=== PATIENT | male | born 1965 | race Caucasian/White ===

== ENCOUNTER 2017-11-03 08:15 | Emergency (ER) | payer BC ==
[2017-11-03 08:26] VITALS: BMI 39.9
--- NOTE | 2017-11-03 11:09 | PDOC ---
History of Present Illness - General Chief Complaint: Pain Stated Complaint: CONSTIPATED Time Seen by Provider: 11/03/17 09:36 History Source: Patient Exam Limitations: No Limitations - History of Present Illness Travel History: No Initial Comments: 11/03/17 10:33 51-year-old male presents to the emergency room with complaints of constipation for the past day along with mild generalized fullness without nausea, fever, chills or abdominal distention. Patient states trembling as follows morning but was unable to pass and feels pressure in his rectum. Pushing. Patient states history of intermittent constipation but normally by the next day is able to pass stool. Patient denies recent change in diet, recent travel, recent change in medications, or poor fluid intake. Timing/Duration: reports: constant Quality: reports: mild, fullness Abdominal Pain Onset Location: reports: generalized abdomen Pain Radiation: reports: no radiation Activities at Onset: reports: none Aggravating Factors: improves with: None Alleviating Factors: improves with: None Past History - Travel Traveled outside of the country in the last 30 days: No - Past Medical History Allergies/Adverse Reactions: Allergies Allergy/AdvReac Type Severity Reaction Status Date / Time No Known Allergies Allergy Verified 11/03/17 08:26 Home Medications: Ambulatory Orders Atorvastatin Calcium 10 mg PO HS 11/03/17 Carvedilol 12.5 mg PO TID 11/03/17 Hydrochlorothiazide 25 mg PO DAILY 11/03/17 Losartan Potassium 100 mg PO DAILY 11/03/17 Polyethylene Glycol 3350 [Miralax (For Bowel Prep) -] 17 gm PO Q2H PRN #1 bottle 11/03/17 Travoprost [Travatan Z] 1 drop OU HS 11/03/17 COPD: No HTN: Yes Hypercholesterolemia: Yes Other medical history: PRESSURE IN EYES - Surgical History Appendectomy: Yes - Suicide/Smoking/Psychosocial Hx Smoking History: Former smoker Have you smoked in the past 12 months: No If you are a former smoker, when did you quit?: 10 YRS Information on smoking cessation initiated: No Hx Alcohol Use: Yes (SOCIAL) Drug/Substance Use Hx: No Patient Lives Alone: Yes Lives with/in: lives alone Review of Systems - Review of Systems Able to Perform ROS?: Yes Constitutional: No: Symptoms Reported HEENTM: No: Symptoms Reported Respiratory: No: Symptoms reported Cardiac (ROS): No: Symptoms Reported ABD/GI: Yes: Constipated, Diarrhea, Abdominal cramping : No: Symptoms Reported Musculoskeletal: No: Symptoms Reported Integumentary: No: Symptoms Reported Neurological: No: Symptoms reported *Physical Exam - Vital Signs Last Vital Signs Temp Pulse Resp BP Pulse Ox 98.0 F 82 20 163/84 95 11/03/17 08:20 11/03/17 08:20 11/03/17 08:20 11/03/17 08:20 11/03/17 08:20 - Physical Exam General Appearance: Yes: Nourished, Appropriately Dressed. No: Apparent Distress Respiratory/Chest: positive: Lungs Clear, Normal Breath Sounds. negative: Respiratory Distress, Accessory Muscle Use Cardiovascular: positive: Regular Rhythm, Regular Rate. negative: Murmur Gastrointestinal/Abdominal: positive: Normal Bowel Sounds, Soft. negative: Distended, Guarding, Rebound, Tenderness, Hernia, Mass Integumentary: positive: Normal Color, Warm, Moist Neurologic: positive: Motor Strength 5/5 (ambulatory) ED Treatment Course - RADIOLOGY Radiology Studies Ordered: Category Date Time Status ABDOMEN FLAT & UPRIGHT [RAD] Stat Radiology 11/03/17 09:53 Completed Medical Decision Making - Medical Decision Making 11/03/17 10:46 Patient here with constipation complaints of the past 2 days. Patient unable to pass stool this morning for decided come to the ER. Patient also mentions generalized abdominal cramping. Patient reexamined had normal bowel sounds throughout all 4 quadrants with no distention or tenderness on exam. Patient was ordered for flat and upright x-ray 11/03/17 11:46 X-ray shows fecal debris throughout the colon without signs of obstruction or dilatation. Patient discharged home with MiraLAX. *DC/Admit/Observation/Transfer Diagnosis at time of Disposition: Constipation Qualifiers: Constipation type: unspecified constipation type Qualified Code(s): K59.00 - Constipation, unspecified - Discharge Dispostion Disposition: HOME Condition at time of disposition: Good - Prescriptions Prescriptions: Polyethylene Glycol 3350 [Miralax (For Bowel Prep) -] 17 gm PO Q2H PRN #1 bottle PRN Reason: Constipation - Referrals - Patient Instructions Printed Discharge Instructions: DI for Constipation Additional Instructions: Please take MiraLAX as discussed and repeat dose in 2 hours if no bowel movement. If symptoms continue over the next few days without producing a bowel movement please return to the nearest ED as you may need further evaluation. Otherwise increase your walking distance and fluid intake - Post Discharge Activity
[2017-11-03 11:28] VITALS: BP 136/95; PULSE 95; TEMP 98.3
--- NOTE | 2017-11-03 12:48 | PDOC ---
*Physical Exam - Vital Signs Last Vital Signs Temp Pulse Resp BP Pulse Ox 98.3 F 95 H 19 136/95 99 11/03/17 11:27 11/03/17 11:27 11/03/17 11:27 11/03/17 11:27 11/03/17 11:27 Medical Decision Making - Medical Decision Making 11/03/17 12:47 This is a 51yo M presenting with a complaint of constipation for the past few days, feeling generalized fullness without nausea, fever, chills. Pt seen by Midlevel Provider under my direct supervision Pt interviewed and examined Ancillary studies reviewed I agree with plan as outlined by Midlevel Provider Xray: no air fluid levels Will discharge with bowel regimen 11/03/17 12:48 *DC/Admit/Observation/Transfer Diagnosis at time of Disposition: Constipation Qualifiers: Constipation type: unspecified constipation type Qualified Code(s): K59.00 - Constipation, unspecified - Discharge Dispostion Disposition: HOME Condition at time of disposition: Good - Prescriptions Prescriptions: Polyethylene Glycol 3350 [Miralax (For Bowel Prep) -] 17 gm PO Q2H PRN #1 bottle PRN Reason: Constipation - Referrals - Patient Instructions Printed Discharge Instructions: DI for Constipation Additional Instructions: Please take MiraLAX as discussed and repeat dose in 2 hours if no bowel movement. If symptoms continue over the next few days without producing a bowel movement please return to the nearest ED as you may need further evaluation. Otherwise increase your walking distance and fluid intake - Post Discharge Activity
== END 2017-11-03 11:28 | disposition home or self-care (01) ==
LOC: JER 08:15
DX: K59.00 Constipation, unspecified (principal); I10 Essential (primary) hypertension; Z87.891 Personal history of nicotine dependence
CPT/HCPCS: 74019-TC; 99282-25

== ENCOUNTER 2018-10-18 09:27 | Emergency (ER) | payer BC ==
[2018-10-18 09:40] VITALS: BP 112/72; PULSE 69; TEMP 98; BMI 40.6
[2018-10-18] MEDS ORDERED: KETOROLAC TROMETHAMINE 60 MG/2 ML VIAL IM ONE (10:40)
--- NOTE | 2018-10-18 10:40 | PDOC ---
History of Present Illness - General Chief Complaint: Back Pain Stated Complaint: LOWER BACK PAIN Time Seen by Provider: 10/18/18 10:32 History Source: Patient - History of Present Illness Occurred: reports: other Severity: reports: severe Pain Location: reports: back Past History - Past Medical History Allergies/Adverse Reactions: Allergies Allergy/AdvReac Type Severity Reaction Status Date / Time No Known Allergies Allergy Verified 10/18/18 09:37 Home Medications: Ambulatory Orders Atorvastatin Calcium 10 mg PO HS 11/03/17 Carvedilol 12.5 mg PO TID 11/03/17 Hydrochlorothiazide 25 mg PO DAILY 11/03/17 Losartan Potassium 100 mg PO DAILY 11/03/17 Polyethylene Glycol 3350 [Miralax (For Bowel Prep) -] 17 gm PO Q2H PRN #1 bottle 11/03/17 Travoprost [Travatan Z] 1 drop OU HS 11/03/17 Cyclobenzaprine HCl [Flexeril -] 10 mg PO TID #9 tablet 10/18/18 Ibuprofen [Motrin -] 800 mg PO Q6H #30 tablet 10/18/18 Tramadol HCl 50 mg PO Q6H #15 tablet MDD 200mg 10/18/18 COPD: No HTN: Yes Hypercholesterolemia: Yes - Surgical History Appendectomy: Yes - Immunization History Immunization Up to Date: Yes - Suicide/Smoking/Psychosocial Hx Smoking History: Never smoked Have you smoked in the past 12 months: No If you are a former smoker, when did you quit?: 10 YRS Hx Alcohol Use: No Drug/Substance Use Hx: No Review of Systems - Review of Systems Constitutional: No: Chills, Fever ABD/GI: No: Nausea, Vomiting, Abdominal cramping : No: Burning, Dysuria, Flank Pain, Hematuria Musculoskeletal: Yes: Back Pain Neurological: No: Numbness, Tingling, Weakness *Physical Exam - Vital Signs Last Vital Signs Temp Pulse Resp BP Pulse Ox 98.0 F 69 18 112/72 96 10/18/18 09:38 10/18/18 09:38 10/18/18 09:38 10/18/18 09:38 10/18/18 09:38 - Physical Exam General Appearance: Yes: Appropriately Dressed, Moderate Distress HEENT: positive: Normal Voice Neck: positive: Supple Respiratory/Chest: negative: Respiratory Distress Gastrointestinal/Abdominal: positive: Soft. negative: Tender Musculoskeletal: positive: Vertebral Tenderness (to mid lower back). negative: CVA Tenderness Integumentary: positive: Dry, Warm Neurologic: positive: Fully Oriented, Alert, Normal Mood/Affect, Motor Strength 5/5 Moderate Sedation - Procedure Monitoring Vital Signs: Procedure Monitoring Vital Signs Temperature 98.0 F 10/18/18 09:38 Pulse Rate 69 10/18/18 09:38 Respiratory Rate 18 10/18/18 09:38 Blood Pressure 112/72 10/18/18 09:38 O2 Sat by Pulse Oximetry (%) 96 10/18/18 09:38 Medical Decision Making - Medical Decision Making 10/18/18 10:38 52 yo M, h/o HTN, chronic LBP s/p injury in 2011, told he had "arthritis" on spinal imaging (unsure if xray vs MRI), here w/ usual back pain that started 1 week ago. Pain located to mid lower back, sharp, 8/10, does not radiate and worse when standing up/walking. No LE weakness, sensory changes, saddle anesthesia or B/B incontinence. Has not taken anything for pain. No recent trauma. See exam Recurrent LBP Dx w/ arthritis in past No red flags at this time -pain control in ED and reassess 10/18/18 12:04 Pain improved per pt, will dc w/ rx and have pt f/u with pmd *DC/Admit/Observation/Transfer Diagnosis at time of Disposition: Low back pain Qualifiers: Chronicity: acute Back pain laterality: unspecified Sciatica presence: without sciatica Qualified Code(s): M54.5 - Low back pain - Discharge Dispostion Disposition: HOME Condition at time of disposition: Improved - Prescriptions Prescriptions: Cyclobenzaprine HCl [Flexeril -] 10 mg PO TID #9 tablet Ibuprofen [Motrin -] 800 mg PO Q6H #30 tablet Tramadol HCl 50 mg PO Q6H #15 tablet MDD 200mg - Referrals - Patient Instructions Printed Discharge Instructions: Low Back Pain Additional Instructions: Take medications ad directed and follow up with your PMD for further evaluation - Post Discharge Activity
[2018-10-18] MEDS ORDERED: CYCLOBENZAPRINE HCL 10 MG TABLET (FP) PO ONE (10:41)
[2018-10-18] MEDS ORDERED: KETOROLAC TROMETHAMINE 60 MG/2 ML VIAL ONE (10:42)
[2018-10-18] MEDS ORDERED: CYCLOBENZAPRINE HCL 10 MG TABLET (FP) ONE (10:45)
== END 2018-10-18 12:11 | disposition home or self-care (01) ==
LOC: JERFT 09:27
DX: M54.5 Low back pain (principal); I10 Essential (primary) hypertension; E78.00 Pure hypercholesterolemia, unspecified; Z87.891 Personal history of nicotine dependence
CPT/HCPCS: 99281-25

== ENCOUNTER 2019-10-02 13:25 | Inpatient (IN) | payer BC ==
--- NOTE | 2019-10-02 13:42 | PDOC ---
History of Present Illness - General Chief Complaint: Lightheaded Stated Complaint: VOMITING,NAUSEA Time Seen by Provider: 10/02/19 13:38 - History of Present Illness Initial Comments: 10/02/19 13:40 53 yo M with h/o HTN, arthritis who p/w dizziness. Patient reports ongoing "dizziness," beginning at 0200 AM this morning, noticed when getting out of bed to ambulate to bathroom. Pt. states that he feels that the room is swaying from side to side. States that he had stumbling gait this morning. Reports that he feels that he is "drunk", and that his "eyes his bugging out" but denies Etoh intake. Also endorses nausea without vomiting. Symptoms worse with movement, and mildly improved at rest. Denies h/o similar presentation. Denies LOC. Reports chronic left hearing loss. Patient denies HARRISON, slurred speech, hearing loss, tinnitus, vision change, palpitations, cough, wheezing, orthopena, PND, leg swelling/pain, F,C, CP, SOB, urinary complaints, hematuria, BPR, abdominal pain, diarrhea, constipation, lightheadedness, weakness, sensory changes. PMHx: as noted above. Denies h/o CVA/TIA, abnml stress test, CABG, stent placement. ROS: as noted SHx: Denies Etoh, IVDA. + distant tobacco use. Tobacco cessation x 15 years. Allergies: NKDA Past History - Past Medical History Allergies/Adverse Reactions: Allergies Allergy/AdvReac Type Severity Reaction Status Date / Time No Known Allergies Allergy Verified 10/02/19 13:46 Home Medications: Ambulatory Orders Atorvastatin Calcium 10 mg PO HS 11/03/17 Carvedilol 12.5 mg PO TID 11/03/17 Hydrochlorothiazide 25 mg PO DAILY 11/03/17 Losartan Potassium 100 mg PO DAILY 11/03/17 Polyethylene Glycol 3350 [Miralax (For Bowel Prep) -] 17 gm PO Q2H PRN #1 bottle 11/03/17 Travoprost [Travatan Z] 1 drop OU HS 11/03/17 Cyclobenzaprine HCl [Flexeril -] 10 mg PO TID #9 tablet 10/18/18 Ibuprofen [Motrin -] 800 mg PO Q6H #30 tablet 10/18/18 Tramadol HCl 50 mg PO Q6H #15 tablet MDD 200mg 10/18/18 COPD: No HTN: Yes Hypercholesterolemia: Yes - Surgical History Appendectomy: Yes - Immunization History Immunization Up to Date: Yes - Psycho Social/Smoking Cessation Hx Smoking History: Never smoked Have you smoked in the past 12 months: No If you are a former smoker, when did you quit?: 10 YRS Hx Alcohol Use: No Drug/Substance Use Hx: No Review of Systems - Review of Systems Comments:: 10/02/19 13:40 GENERAL/CONSTITUTIONAL: No fever or chills. No weakness. HEAD, EYES, EARS, NOSE AND THROAT: No change in vision. No ear pain or discharge. No sore throat. CARDIOVASCULAR: No chest pain or shortness of breath RESPIRATORY: No cough, wheezing, or hemoptysis. GASTROINTESTINAL: No nausea, vomiting, diarrhea or constipation. GENITOURINARY: No dysuria, frequency, or change in urination. MUSCULOSKELETAL: No joint or muscle swelling or pain. No neck or back pain. SKIN: No rash NEUROLOGIC: + Vertigo. No headache, loss of consciousness, or change in strength /sensation. ENDOCRINE: No increased thirst. No abnormal weight change HEMATOLOGIC/LYMPHATIC: No anemia, easy bleeding, or history of blood clots. ALLERGIC/IMMUNOLOGIC: No hives or skin allergy. *Physical Exam - Vital Signs Last Vital Signs Temp Pulse Resp BP Pulse Ox 97.5 F L 64 16 134/86 95 10/02/19 13:30 10/02/19 13:30 10/02/19 13:30 10/02/19 13:30 10/02/19 13:30 - Physical Exam 10/02/19 13:40 GENERAL: Awake, alert, and fully oriented, in no acute distress HEAD: No signs of trauma, normocephalic, atraumatic EYES: + Partial right eye lateral deviated gaze palsy. PERRLA, EOMI, sclera anicteric, conjunctiva clear ENT: Auricles normal inspection, hearing grossly normal, nares patent, oropharynx clear without exudates. Moist mucosa NECK: Normal ROM, supple, no lymphadenopathy, JVD, or masses LUNGS: No distress, speaks full sentences, clear to auscultation bilaterally HEART: Regular rate and rhythm, normal S1 and S2, no murmurs, rubs or gallops, peripheral pulses normal and equal bilaterally. ABDOMEN: Soft, nontender, normoactive bowel sounds. No guarding, no rebound. No masses EXTREMITIES : Normal inspection, Normal range of motion, no edema. No clubbing or cyanosis NEUROLOGICAL: + horizontal nystagmus. Cranial nerves II through XII grossly intact. Normal speech, no focal sensorimotor deficits. Absent dysmetria on FTN. Nml RYAN. SKIN: Warm, Dry, normal turgor, no rashes or lesions noted ED Treatment Course - LABORATORY CBC & Chemistry Diagram: 10/02/19 14:09 10/02/19 14:09 - ADDITIONAL ORDERS Additional order review: Laboratory Results 10/02/19 10/02/19 14:09 14:09 PT with INR 11.70 INR 0.99 PTT (Actin FS) 30.3 Sodium 143 Potassium 4.0 Chloride 106 Carbon Dioxide 31 Anion Gap 6 L BUN 18.3 H Creatinine 0.9 Est GFR (CKD-EPI)AfAm 111.05 Est GFR (CKD-EPI)NonAf 95.81 Random Glucose 135 H Calcium 8.8 Total Bilirubin 0.4 AST 18 ALT 44 Alkaline Phosphatase 59 Creatine Kinase 114 Troponin I < 0.02 Total Protein 6.5 Albumin 3.7 10/02/19 14:09 RBC 5.24 MCV 93.2 MCHC 34.0 RDW 14.4 MPV 7.8 Neutrophils % 83.0 H Lymphocytes % 9.4 Monocytes % 5.5 Eosinophils % 1.6 Basophils % 0.5 - RADIOLOGY Radiology Studies Ordered: Category Date Time Status HEAD CT WITHOUT CONTRAST [CT] Stat CT Scan 10/02/19 14:00 Completed - Medications Given in the ED: ED Medications Discontinued Medications Generic Name Dose Route Start Last Admin Trade Name Freq PRN Reason Stop Dose Admin Meclizine HCl 25 mg 10/02/19 14:00 10/02/19 14:18 Antivert - PO 10/02/19 14:01 25 mg ONCE ONE Administration [facility] Name: GETACHEW CHAUDHARY DEPARTMENT OF RADIOLOGY Phys: Vinnie Guy RESIDENT : 1965 Age: 53 Sex: M [facility] Acct: [id number] Loc: [address] Exam Date: 10/02/19 Status: [facility] [place] [id number] Unit Number: [id number] EXAM#: TYPE/EXAM: RESULT: [id number] CT/HEAD CT WITHOUT CONTRAST Evaluate for dizziness CT scan of the brain without intravenous contrast. There is mild-to- moderate volume loss and ventricular dilatation. Probable minimal periventricular chronic microvascular ischemic disease changes are present. No mass lesion, gross acute infarct or intracranial hemorrhage are identified. Mild mucoperiosteal thickening is partially opacifying the ethmoid air cells. Mild deviation of the nasal septum towards the right. The mastoid air cells are well aerated and the calvarium is intact. Questionable bilateral cataract sutures are present. Impression: [id number] volume loss and ventricular dilatation without CT evidence of gross acute intracranial pathology. Correlate clinically to determine further evaluation and follow-up Reported By: Meredith Cooper MD 10/02/191609 Vinnie Guy Technologist: Bruce Edge Transcribed Date/Time: 10/02/191609 Elementary Reading Tutor: Meredith Cooper Printed Date/ Time: By: Medical Decision Making - Medical Decision Making 10/02/19 14:04 53 yo M with h/o HTN, arthritis who p/w dizziness (room swaying) and nausea without vomiting. Vitals wnl, AF, A&OX3. Physical exam unremarkable. Patient neurologically intact. + horizontal nystagmus. Symptom present at rest. Pt. denies HARRISON, hearing loss, tinnitus, vision change, palpitations, F,C, CP, SOB, urinary complaints, abdominal pain, diarrhea, constipation, lightheadedness, weakness, sensory changes. Patient symptoms consistent with vertigo. Will consider central vs. peripheral cause of vertigo. Will assess for VBI, CVA, hypoglycemia, cardiac dysarrythmias, electrolyte abnml, metabolic and toxic derangements, acid-base disturbances, infection. Ed Course: CTH, Meclizine 10/02/19 14:26 EKG: NSR with absent FE, STD. Nml interval duration and axis. Nml R wave progression. Absent Q waves. 10/02/19 15:12 Laboratory Tests 10/02/19 10/02/19 14:09 14:09 WBC 7.8 Hgb 16.6 Hct 48.9 Plt Count 220 Sodium 143 BUN 18.3 H Creatinine 0.9 Creatine Kinase 114 Troponin I < 0.02 10/02/19 16:21 CTH: Impression: [id number] volume loss and ventricular dilatation without CT evidence of gross acute intracranial pathology. Correlate clinically to determine further evaluation and follow-up Pt. endorsed Dr. García. Admitted. Discharge - Discharge Information Problems reviewed: Yes Clinical Impression/Diagnosis: Vertigo Condition: Stable - Admission Yes - Follow up/Referral - Patient Discharge Instructions Patient Printed Discharge Instructions: DI for Nystagmus Additional Instructions: Please return to the emergency department with any new or worsening symptoms or concerns. Please follow up with your primary care physician within 72 hours. - Post Discharge Activity NIH Stroke Scale - Last Known Well Date/Time & Onset Date Last Known Well: 10/02/19 Time Last Known Well: 02:00 - Initial Evaluation Level of consciousness: Alert Ask patient the month and their age: Answers both correctly Ask patient to open & close eyes; make fist and let go: Obeys both correctly Best gaze (horizontal eye movement): Normal Visual field testing: No visual field loss Facial paresis (Show teeth/raise eyebrows/close eyes tight): Normal symmetrical movement Motor Function: Left Arm: Normal Motor Function: Right Arm: Normal (extends arm 90 (or 45) degrees for 10 seconds without drift Motor Function: Left Leg: Normal (extends leg 30 degrees for 5 seconds without drift) Motor Function: Right Leg: Normal (extends leg 30 degrees for 5 seconds without drift) Limb Ataxia: No ataxia Sensory(Use pinprick test arms,legs,trunk,face/side to side): Normal Best language (Describe picture, name items, read sentences): No Aphasia Dysarthria (read several words): Normal articulation Extinction and Inattention: No abnormality - Total Score NIH Stroke Scale Score: 0
[2019-10-02] MEDS ORDERED: MECLIZINE HCL 25 MG TABLET (FP) PO ONE (14:00)
[2019-10-02] MEDS ORDERED: MECLIZINE HCL 25 MG TABLET (FP) ONE (14:04)
--- NOTE | 2019-10-02 14:12 | PDOC ---
Attending Attestation - Resident Resident Name: Vinnie Guy - ED Attending Attestation I have performed the following: I have examined & evaluated the patient, The case was reviewed & discussed with the resident, I agree w/resident's findings & plan, Exceptions are as noted - HPI HPI: 10/02/19 14:11 53y M hx of htn presents with feeling dizzy and 'eyes bugging out' and feeling off baalance while going to the restroom last night around 2am. Patient states that the symptoms have been persistent since 2 AM it is worse when he is walking around and moving his head however he does feel it while at rest. He denies any associated symptoms such as focal numbness, tingling, weakness, headache, neck pain, double vision, any problems with his speech,, syncope, head injuries or trauma,, fever, chills, palpitations, chest pain, shortness of breath, diarrhea, melena, BPR recent URIs or illnesses. Patient has never felt similarly in the past. Physicial Exam GENERAL: The patient is awake, alert, and fully oriented, Nontoxic - in no acute distress. HEAD: Normocephalic, atraumatic. EYES: extraocular movements intact, sclera anicteric, conjunctiva clear. Persistent horizontal nystagmus ENT: Normal voice, Moist mucous membranes. NECK: Normal range of motion, supple LUNGS: Breath sounds equal, clear to auscultation bilaterally. No wheezes, no rhonchi, no rales. HEART: Regular rate and rhythm, normal S1 and S2 without murmur, rub or gallop. ABDOMEN: Soft, nontender, No guarding, no rebound. No CVA tenderness EXTREMITIES: Normal range of motion, no edema. NEUROLOGICAL: No facial assymetry, Normal speech, strength and symmetric in upper and lower extremities, sensation intact and symmetric in upper and lower extremities, [id number], rapid alternating movements, heel canas were symmetric bilaterally. PSYCH: Normal mood, normal affect. SKIN: Warm, Dry, normal turgor, Differential includes peripheral versus central vertigo concern for central due to persistence at rest. Will obtain CT head will give meclizine and Zofran for symptomatic relief we will obtain basic labs EKG to screen for anemia, metabolic derangements, ACS. - Physicial Exam PE: 10/07/19 08:05 see above - Medical Decision Making 10/02/19 17:10 Pts labs were reivewed ct head reviewed pt still symptomatic [facility] admit for further management and neuro eval Heart Score/ECG Review - ECG Impressions Comment:: 10/02/19 14:45 Twelve-lead EKG was performed and reviewed by me. There is normal sinus rhythm with a normal rate. Rate of 69 The axis is normal. The intervals are normal. There is normal R wave progression There are no ST or T wave abnormalities. Impression: Normal twelve-lead EKG
[2019-10-02 14:28] LABS: BASO % 0.5 % (0-2.0); EOS % 1.6 % (0-4.5); HEMATOCRIT 48.9 % (35.4-49); HEMOGLOBIN 16.6 GM/dL (11.7-16.9); LYMPH % 9.4 % (8-40); MCH 31.7 pg (25.7-33.7); MEAN CELL VOLUME 93.2 fl (80-96); MEAN PLT VOLUME 7.8 fl (7.5-11.1); MONO % 5.5 % (3.8-10.2); PLATELET COUNT 220 K/MM3 (134-434); RBC 5.24 M/mm3 (4.00-5.60); RDW 14.4 % (11.9-15.9); WHITE BLOOD COUNT 7.8 K/mm3 (4.0-10.0)
[2019-10-02 14:41] LABS: INR 0.99 (0.83-1.09); PROTHROMBIN TIME (PATIENT) 11.7 SEC (9.7-13.0)
[2019-10-02 14:44] LABS: ACTIVATED PTT 30.3 SECONDS (25.2-36.5)
[2019-10-02 15:00] LABS: ALBUMIN 3.7 g/dl (3.4-5.0); ALK PHOS 59 U/L (45-117); ANION GAP 6 MMOL/L (8-16); BILIRUBIN,TOTAL 0.4 mg/dL (0.2-1); BLOOD UREA NITROGEN 18.3 mg/dL (7-18); CALCIUM 8.8 mg/dL (8.5-10.1); CHLORIDE 106 mmol/L (98-107); CO2 31 mmol/L (21-32); CREATININE 0.9 mg/dL (0.55-1.3); GLUCOSE,RANDOM 135 mg/dL (74-106); SGOT/AST 18 U/L (15-37); SGPT/ALT 44 U/L (13-61); SODIUM 143 mmol/L (136-145); TOT PROT 6.5 g/dl (6.4-8.2)
--- NOTE | 2019-10-02 17:31 | EKG ---
Test Reason : Blood Pressure : / mmHG Vent. Rate : 069 BPM Atrial Rate : 069 BPM P-R Int : 148 ms QRS Dur : 086 ms QT Int : 418 ms P-R-T Axes : 029 006 035 degrees QTc Int : 447 ms NORMAL SINUS RHYTHM NORMAL ECG WHEN COMPARED WITH ECG OF 04-FEB-2011 18:52, NO SIGNIFICANT CHANGE WAS FOUND Confirmed by LORRAINE REYNOSO MD ([id number]) on 10/02/2019 5:31:05 PM Referred By: Confirmed By:LORRAINE REYNOSO MD
--- NOTE | 2019-10-02 20:33 | HP ---
Admitting History and Physical - Primary Care Physician PCP: Chance García - Admission History of Present Illness: 53 yo M with h/o HTN, arthritis who p/w dizziness. Patient reports ongoing "dizziness," beginning at 0200 AM this morning, noticed when getting out of bed to ambulate to bathroom. Pt. states that he feels that the room is swaying from side to side. States that he had stumbling gait this morning. Reports that he feels that he is "drunk", and that his "eyes his bugging out" but denies Etoh intake. Also endorses nausea without vomiting. Symptoms worse with movement, and mildly improved at rest. Denies h/o similar presentation. Denies LOC. Reports chronic left hearing loss. - Past Medical History Cardiovascular: Yes: HTN - Smoking History Smoking history: Never smoked Have you smoked in the past 12 months: No If you are a former smoker, when did you quit?: 10 YRS - Alcohol/Substance Use Hx Alcohol Use: No Home Medications - Allergies Allergies/Adverse Reactions: Allergies Allergy/AdvReac Type Severity Reaction Status Date / Time No Known Allergies Allergy Verified 10/02/19 13:46 - Home Medications Home Medications: Ambulatory Orders Hydrochlorothiazide 25 mg PO DAILY 11/03/17 Losartan Potassium 100 mg PO DAILY 11/03/17 Travoprost [Travatan Z] 1 drop OU HS 11/03/17 Physical Examination Vital Signs: Vital Signs Temperature 97.8 F 10/02/19 18:51 Pulse Rate 73 10/02/19 18:51 Respiratory Rate 22 H 10/02/19 18:51 Blood Pressure 137/81 10/02/19 18:51 O2 Sat by Pulse Oximetry (%) 95 10/02/19 18:51 Constitutional: Yes: No Distress HENT: Yes: Atraumatic Neck: Yes: Supple Cardiovascular: Yes: Regular Rate and Rhythm Respiratory: Yes: CTA Bilaterally Gastrointestinal: Yes: Normal Bowel Sounds Extremities: Yes: WNL Edema: No Neurological: Yes: Alert, Oriented Labs: CBC, BMP 10/02/19 14:09 10/02/19 14:09 Imaging - Results Cat Scan: Report Reviewed Problem List - Problems (1) HTN (hypertension) Assessment/Plan: continue home meds Code(s): I10 - ESSENTIAL (PRIMARY) HYPERTENSION (2) Vertigo Assessment/Plan: on meclizine neuro consult Code(s): R42 - DIZZINESS AND GIDDINESS Assessment/Plan Laboratory Tests 10/02/19 10/02/19 10/02/19 14:09 14:09 14:09 WBC 7.8 RBC 5.24 Hgb 16.6 Hct 48.9 MCV 93.2 MCH 31.7 MCHC 34.0 RDW 14.4 Plt Count 220 MPV 7.8 Absolute Neuts (auto) 6.5 Neutrophils % 83.0 H Lymphocytes % 9.4 Monocytes % 5.5 Eosinophils % 1.6 Basophils % 0.5 Nucleated RBC % 0 PT with INR 11.70 INR 0.99 PTT (Actin FS) 30.3 Sodium 143 Potassium 4.0 Chloride 106 Carbon Dioxide 31 Anion Gap 6 L BUN 18.3 H Creatinine 0.9 Est GFR (CKD-EPI)AfAm 111.05 Est GFR (CKD-EPI)NonAf 95.81 Random Glucose 135 H Calcium 8.8 Total Bilirubin 0.4 AST 18 ALT 44 Alkaline Phosphatase 59 Creatine Kinase 114 Troponin I < 0.02 Total Protein 6.5 Albumin 3.7 Active Medications Generic Name Dose Route Start Last Admin Trade Name Freq PRN Reason Stop Dose Admin Acetaminophen 650 mg 10/02/19 20:34 Tylenol - PO Q6H PRN FEVER Atorvastatin Calcium 10 mg 10/02/19 22:00 10/02/19 22:10 Lipitor - PO 10 mg HS VERONA Administration Carvedilol 12.5 mg 10/02/19 22:00 10/03/19 14:37 Coreg - PO 12.5 mg TID VERONA Administration Hydrochlorothiazide 25 mg 10/03/19 10:00 10/03/19 10:40 Hctz - PO 25 mg DAILY VERONA Administration Latanoprost 1 drop 10/02/19 22:00 10/02/19 22:00 Xalatan 0.005% Eye Drops - OU Not Given HS VERONA Meclizine HCl 12.5 mg 10/03/19 00:00 10/03/19 11:45 Antivert - PO 12.5 mg Q6HPO VERONA Administration Ondansetron HCl 4 mg 10/02/19 20:34 Zofran Injection IVPB Q4H PRN NAUSEA AND/OR VOMITING
[2019-10-02] MEDS ORDERED: ACETAMINOPHEN 325 MG TABLET (FP) PO PRN (20:34)
[2019-10-02] MEDS ORDERED: ONDANSETRON 4 MG/2 ML VIAL IVPB PRN (20:34)
[2019-10-02] MEDS: LATANOPROST 0.005% OPHTH SOLN 2.5ML BOTTLE OU SCH (22:00)
[2019-10-02] MEDS ORDERED: ATORVASTATIN CA 10 MG TABLET (FP) ONE (22:03)
[2019-10-02] MEDS ORDERED: CARVEDILOL 12.5 MG TABLET (FP) ONE (22:05)
[2019-10-02] MEDS: ATORVASTATIN CA 10 MG TABLET (FP) PO SCH (22:10)
[2019-10-02] MEDS: CARVEDILOL 12.5 MG TABLET (FP) PO SCH (22:10)
[2019-10-03] MEDS ORDERED: MECLIZINE HCL 12.5 MG TABLET ONE ×2 (00:39→05:40)
[2019-10-03] MEDS: MECLIZINE HCL 12.5 MG TABLET PO SCH ×5 (00:42→23:21)
[2019-10-03 00:53] LABS: EPI CELLS 1.9 /HPF (0-5/HPF); HYALINE CASTS 3 /lpf (0-8); PH,URINE 6.5 (5.0-8.0); URINE APPEARANCE CLEAR; URINE BACTERIA 13.6 /hpf (NEGATIVE); URINE BILIRUBIN NEGATIVE (NEGATIVE); URINE COLOR YELLOW; URINE GLUCOSE (UA) NEGATIVE (NEGATIVE); URINE KETONE NEGATIVE (NEGATIVE); URINE LEUK ESTERASE 1+ (NEGATIVE); URINE NITRITE NEGATIVE (NEGATIVE); URINE PROTEIN NEGATIVE (NEGATIVE); URINE RBC 1 /hpf (0-4); URINE WBC 8 /hpf (0-5)
[2019-10-03] MEDS ORDERED: CARVEDILOL 12.5 MG TABLET (FP) ONE (05:40)
[2019-10-03] MEDS: CARVEDILOL 12.5 MG TABLET (FP) PO SCH ×3 (05:47→21:19)
[2019-10-03] MEDS ORDERED: HYDROCHLOROTHIAZIDE 25 MG PO SCH (10:00)
[2019-10-03] MEDS: HYDROCHLOROTHIAZIDE 25 MG TABLET (FP) PO SCH (10:40)
--- NOTE | 2019-10-03 12:34 | PN ---
Progress Note, Physician - Current Medication List Current Medications: Active Medications Acetaminophen (Tylenol -) 650 mg PO Q6H PRN PRN Reason: FEVER Atorvastatin Calcium (Lipitor -) 10 mg PO HS [facility] Last Admin: 10/02/19 22:10 Dose: 10 mg Carvedilol (Coreg -) 12.5 mg PO TID [facility] Last Admin: 10/03/19 05:47 Dose: 12.5 mg Hydrochlorothiazide (Hctz -) 25 mg PO DAILY [facility] Last Admin: 10/03/19 10:40 Dose: 25 mg Latanoprost (Xalatan 0.005% Eye Drops -) 1 drop OU HS [facility] Last Admin: 10/02/19 22:00 Dose: Not Given Meclizine HCl (Antivert -) 12.5 mg PO Q6HPO [facility] Last Admin: 10/03/19 11:45 Dose: 12.5 mg Ondansetron HCl (Zofran Injection) 4 mg IVPB Q4H PRN PRN Reason: NAUSEA AND/OR VOMITING - Objective Vital Signs: Vital Signs Temperature 97.3 F L 10/03/19 07:45 Pulse Rate 66 10/03/19 10:00 Respiratory Rate 18 10/03/19 10:00 Blood Pressure 138/96 10/03/19 10:00 O2 Sat by Pulse Oximetry (%) 93 L 10/03/19 05:47 Constitutional: Yes: No Distress HENT: Yes: Atraumatic Neck: Yes: Supple Cardiovascular: Yes: Regular Rate and Rhythm Respiratory: Yes: CTA Bilaterally Gastrointestinal: Yes: Normal Bowel Sounds Extremities: Yes: WNL Neurological: Yes: Alert, Oriented Labs: CBC, BMP 10/02/19 14:09 10/02/19 14:09 INR, PTT INR 0.99 (0.83-1.09) 10/02/19 14:09 Problem List - Problems (1) HTN (hypertension) Assessment/Plan: continue home meds Code(s): I10 - ESSENTIAL (PRIMARY) HYPERTENSION (2) Vertigo Assessment/Plan: on meclizine neuro consult Code(s): R42 - DIZZINESS AND GIDDINESS
[2019-10-03 13:37] VITALS: BMI 45.0
--- NOTE | 2019-10-03 17:54 | CONSULT ---
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 PMH of HTN, Chol and chronic, chronic LBP, andslowly progressive hearing loss on the left side (non-familial) which has never been evaluated. Maintained on: Atorvastatin; Carvedilol; Hydrochlorothiazide; Losartan; Cyclobenzaprine; Ibuprofen 800 mg Q6H; and Tramadol HCl 50 mg PO Q6H Was in [facility] Wednesday night. On Wednesday at 2:30 AM he awoke to urinate and noted spinning vertigo and was "bouncing off the ruiz" like he was drunk. He went to sleep but symptoms recurred at 7 AM and 10 AM when he awoke. One episode of nausea when EMT arrived. No Tinitus. Symptoms gradually improved in ED. Now feels "almost normal" although slightly "unsteady." ROS sig for chronic tremor CT of head (reviewed): Normal GLORIA: SF=[id number]/100. Obese (341 lbs) neg SLR. No bruits. Cor reg. NEURO: Awake, alert. MS/speech: Normal CN II-XII: Chronic right exotropia. Full alas and EOM's. Decreased hearing on the left. Self lateralizes to the right. Motor: Coarse sustention tremor. No drift. Normal strength. Normal reflexes except left AJ. Toes downgoing. Coord: No FTN dystaxia Sensory: Normal Gait: Sl wide-based. Sl. waddle. IMP: Vertigo probably due to Left labyrinthitis Left S1 radiculopathy SUGGEST: Continue meclizine 25 mg PO TID x 24 hours then D/C. MRI of brain (C-/C+) with special attention left internal auditory canal (R/O accoustic neuroma) which can be done as out patient. ENT evaluation and Rx can also be done as out patient if desired. Thank you very much, Jadiel Moore MD
[2019-10-03] MEDS: ATORVASTATIN CA 10 MG TABLET (FP) PO SCH (21:19)
[2019-10-03] MEDS: LATANOPROST 0.005% OPHTH SOLN 2.5ML BOTTLE OU SCH (21:54)
[2019-10-04] MEDS: CARVEDILOL 12.5 MG TABLET (FP) PO SCH ×3 (05:17→21:22)
[2019-10-04] MEDS: MECLIZINE HCL 12.5 MG TABLET PO SCH ×3 (05:17→17:44)
[2019-10-04] MEDS: HYDROCHLOROTHIAZIDE 25 MG TABLET (FP) PO SCH (09:17)
--- NOTE | 2019-10-04 19:18 | PN ---
Progress Note, Physician - Current Medication List Current Medications: Active Medications Acetaminophen (Tylenol -) 650 mg PO Q6H PRN PRN Reason: FEVER Atorvastatin Calcium (Lipitor -) 10 mg PO HS [facility] Last Admin: 10/03/19 21:19 Dose: 10 mg Carvedilol (Coreg -) 12.5 mg PO TID [facility] Last Admin: 10/04/19 13:29 Dose: 12.5 mg Hydrochlorothiazide (Hctz -) 25 mg PO DAILY [facility] Last Admin: 10/04/19 09:17 Dose: 25 mg Latanoprost (Xalatan 0.005% Eye Drops -) 1 drop OU HS [facility] Last Admin: 10/03/19 21:54 Dose: Not Given Meclizine HCl (Antivert -) 12.5 mg PO Q6HPO [facility] Last Admin: 10/04/19 17:44 Dose: 12.5 mg Ondansetron HCl (Zofran Injection) 4 mg IVPB Q4H PRN PRN Reason: NAUSEA AND/OR VOMITING - Objective Vital Signs: Vital Signs Temperature 97.8 F 10/04/19 13:19 Pulse Rate 82 10/04/19 13:19 Respiratory Rate 20 10/04/19 13:19 Blood Pressure 141/86 10/04/19 13:19 O2 Sat by Pulse Oximetry (%) 92 L 10/04/19 09:00 Constitutional: Yes: No Distress HENT: Yes: Atraumatic Neck: Yes: Supple Cardiovascular: Yes: Regular Rate and Rhythm Respiratory: Yes: CTA Bilaterally Gastrointestinal: Yes: Normal Bowel Sounds Extremities: Yes: WNL Neurological: Yes: Alert, Oriented Labs: CBC, BMP 10/02/19 14:09 10/02/19 14:09 INR, PTT INR 0.99 (0.83-1.09) 10/02/19 14:09 Problem List - Problems (1) HTN (hypertension) Assessment/Plan: continue home meds Code(s): I10 - ESSENTIAL (PRIMARY) HYPERTENSION (2) Vertigo Assessment/Plan: on meclizine neuro consult Code(s): R42 - DIZZINESS AND GIDDINESS
[2019-10-04] MEDS: LATANOPROST 0.005% OPHTH SOLN 2.5ML BOTTLE OU SCH (21:13)
[2019-10-04] MEDS: ATORVASTATIN CA 10 MG TABLET (FP) PO SCH (21:22)
[2019-10-05] MEDS: MECLIZINE HCL 12.5 MG TABLET PO SCH ×2 (00:24→06:15)
[2019-10-05] MEDS: CARVEDILOL 12.5 MG TABLET (FP) PO SCH (06:15)
[2019-10-05 09:11] VITALS: BP 138/91; PULSE 80; TEMP 98
[2019-10-05] MEDS: HYDROCHLOROTHIAZIDE 25 MG TABLET (FP) PO SCH (09:11)
--- NOTE | 2019-10-05 16:27 | DS ---
Physical Examination Vital Signs: Vital Signs Temperature 98 F 10/05/19 07:00 Pulse Rate 80 10/05/19 07:00 Respiratory Rate 20 10/05/19 07:00 Blood Pressure 138/91 10/05/19 07:00 O2 Sat by Pulse Oximetry (%) 92 L 10/04/19 09:00 Labs: CBC, BMP 10/02/19 14:09 10/02/19 14:09 Discharge Summary Problems reviewed: Yes Reason For Visit: VERTIGO Condition: Stable - Instructions Referrals: Jadiel Moore MD [Staff Physician] - Disposition: HOME - Home Medications Comprehensive Discharge Medication List: Ambulatory Orders Hydrochlorothiazide 25 mg PO DAILY 11/03/17 Losartan Potassium 100 mg PO DAILY 11/03/17 Travoprost [Travatan Z] 1 drop OU HS 11/03/17 Meclizine HCl [Antivert -] 12.5 mg PO Q6HPO #15 tablet 10/04/19 dc home fu pmd/neuro
== END 2019-10-05 10:09 | disposition home or self-care (01) | DRG 149 ==
LOC: JER 13:25 → JERBED 16:30 → J6S 10-03 13:13
PROVIDERS: ADMIT Internal Medicine; ATTEND Internal Medicine
DX: H83.02 Labyrinthitis, left ear (principal); R42 Dizziness and giddiness; I10 Essential (primary) hypertension; M54.18 Radiculopathy, sacral and sacrococcygeal region
CPT/HCPCS: 36415; 70450-TC; 80053; 81003; 82550; 84484; 85025; 85610; 85730; 93005; 93010; 97161-GP; 99285-25

== ENCOUNTER 2022-10-08 11:14 | Emergency (ER) | payer OTHER, BC ==
[2022-10-08 11:29] VITALS: BP 151/87; PULSE 79; RESP 18; TEMP 98.4; BMI 46.4
[2022-10-08] MEDS ORDERED: ACETAMINOPHEN 325 MG TABLET (FP) PO ONE (12:51)
[2022-10-08] MEDS ORDERED: DIPHTH,PERTUSS(ACELL),TET 0.5 ML DISP.SYRIN IM ONE ×3 (12:51→13:09)
[2022-10-08] MEDS ORDERED: ACETAMINOPHEN 325 MG TABLET (FP) ONE (12:56)
[2022-10-08] MEDS ORDERED: LIDOCAINE HCL 2% (20ML MULTI-DOSE VIAL) ONE (14:39)
== END 2022-10-08 15:53 | disposition home or self-care (01) ==
LOC: JER 11:14 → JERFT 11:14
PROC: 3E0234Z Introduction of Serum, Toxoid and Vaccine into Muscle, Percutaneous Approach (ICD-10-PCS; principal; 2022-10-08)
DX: S61.313A Laceration without foreign body of left middle finger with damage to nail, initial encounter (principal); W26.8XXA Contact with other sharp object(s), not elsewhere classified, initial encounter
CPT/HCPCS: 73140-TC-LT-FY; 90715; 99284-25